=== PATIENT | male | born 1980 | race African-American/Black ===

== ENCOUNTER 2022-11-02 23:22 | Emergency (ER) | payer OTHER, SELFPAY ==
[2022-11-02 23:30] VITALS: BP 163/98; PULSE 98; RESP 16; TEMP 36.8; O2SAT 99
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
[2022-11-03] MEDS: KETOROLAC (*BKC) 60 MG/2 ML VIAL IM (01:49)
[2022-11-03 01:52] VITALS: BP 151/76; PULSE 73; RESP 17; O2SAT 97
[2022-11-03] MEDS: LIDOCAINE 5% PATCH 1 PATCH TRANSDERM (02:00)
== END 2022-11-03 02:46 | disposition home or self-care (01) ==
PROVIDERS: Emergency Provider Preventive Medicine Aerospace Medicine
DX: S46.812A Strain of other muscles, fascia and tendons at shoulder and upper arm level, left arm, initial encounter (principal); S29.9XXA Unspecified injury of thorax, initial encounter; V49.49XA Driver injured in collision with other motor vehicles in traffic accident, initial encounter
CPT/HCPCS: 96372; 99283; A9270; J1885